=== PATIENT | male | born 1975 | race American Indian/Alaskan Native ===

== ENCOUNTER 2017-03-23 09:35 | Emergency (ER) | payer BC ==
[2017-03-23 10:04] VITALS: RESP 18
--- NOTE | 2017-03-23 10:08 | ED PDOC ---
Arrival/HPI - General Chief Complaint: Lower Extremity Problem/Injury Time Seen by Provider: 03/23/17 10:01 Historian: Patient - History of Present Illness Narrative History of Present Illness (Text): 03/23/17 10:03 41yr old male presents today with 1 week history of left foot and ankle pain. denies trauma or injury. pt states 1 week ago he woke up with pain in the foot. pt states he went to [facility] and had xrays and has been taking motrin and tylenol without improvement. pt describes a burning sensation along the plantar aspect of foot. pt also c/o nasal congestion, sore throat and cough. denies fevers although he states patient he had temperature today when they took his temperature in ER. no medications taken for pain at home. denies calf pain. no other complaints. Time/Duration: 1 week, Other (uri symptoms x 2 days) Past Medical History - Provider Review Nursing Documentation Reviewed: Yes - Travel History Have you recently traveled outside [place] w/in the past 3 mons?: No - Infectious Disease Hx of Infectious Diseases: None - Tetanus Immunization Tetanus Immunization: Unknown - Cardiac Hx Hypertension: Yes - Gastrointestinal Hx Gastrointestinal Disorders: No - Psychiatric Hx Substance Use: No - Anesthesia Hx Anesthesia: No Hx Anesthesia Reactions: No Hx Malignant Hyperthermia: No Family/Social History - Physician Review Nursing Documentation Reviewed: Yes Family/Social History: Unknown Family HX Smoking Status: Never Smoked Hx Alcohol Use: No Hx Substance Use: No Allergies/Home Meds Allergies/Adverse Reactions: Allergies shellfish derived Allergy (Severe, Verified 03/23/17 09:45) SHORTNESS OF BREATH codeine Allergy (Verified 03/23/17 09:44) SHORTNESS OF BREATH Home Medications: Home Meds Medication Instructions Recorded Confirmed Metoprolol Succinate [Toprol XL] 100 mg 03/23/17 hydroCHLOROthiazide [Hydrodiuril] 25 03/23/17 Review of Systems - Review of Systems Constitutional: absent: Fatigue, Fevers ENT: Sinus Congestion Respiratory: Cough. absent: SOB Cardiovascular: absent: Chest Pain, Palpitations Gastrointestinal: absent: Abdominal Pain, Nausea, Vomiting Genitourinary Male: absent: Dysuria Musculoskeletal: Arthralgias (left foot pain) Skin: absent: Rash, Pruritis Neurological: absent: Headache, Dizziness Psychiatric: absent: Anxiety, Depression Physical Exam Vital Signs Reviewed: Yes Vital Signs Temp Pulse Resp BP Pulse Ox 03/23/17 09:39 100.5 F H 88 18 150/109 H 97 Temperature: Febrile Blood Pressure: Hypertensive Pulse: Regular Respiratory Rate: Normal Appearance: Positive for: Well-Appearing, Non-Toxic, Comfortable Pain Distress: None Mental Status: Positive for: Alert and Oriented X 3 - Systems Exam Head: Present: Atraumatic Pupils: Present: PERRL Extroacular Muscles: Present: EOMI Conjunctiva: Present: Normal Ears: Present: Normal, NORMAL TM. No: Erythema Mouth: Present: Moist Mucous Membranes. No: Drooling, Trismus Pharnyx: Present: Normal. No: ERYTHEMA, EXUDATE, TONSILS ENLARGED, Peritonsilar Swelling, Uvular Deviation Nose (External): Present: Atraumatic Nose (Internal): Present: No Active Bleeding, Engorged, Clear Mucous. No: Septal Hematoma Neck: Present: Normal Range of Motion, Trachea Midline. No: Lymphadenopathy Respiratory/Chest: Present: Clear to Auscultation, Good Air Exchange. No: Respiratory Distress, Accessory Muscle Use Cardiovascular: Present: Regular Rate and Rhythm, Normal S1, S2. No: Murmurs Abdomen: No: Tenderness, Distention, Rebound, Guarding Lower Extremity: Present: NORMAL PULSES, Normal ROM, Tenderness, Neurovascularly Intact, Capillary Refill < 2 s. No: CALF TENDERNESS, Swelling, Erythema, Deformity, Temperature Abnormalties Neurological: Present: GCS=15, Speech Normal Skin: Present: Warm, Dry, Normal Color. No: Rashes Psychiatric: Present: Alert, Oriented x 3 Medical Decision Making ED Course and Treatment: 03/23/17 11:48 Patient nontoxic well-appearing in no distress with low grade fever in er; URi symptoms x 2 days + nasal congestion, facial pressure. + sick contacts X-rays of the foot: no fracture xrays of the ankle; no fracture toradol IM Patient placed in short leg posterior splint crutches given for ambulation. will treat patient with augmentin for sinus infection; I discussed all results in depth with the patient advised to followup with the orthopedist/assembler arranger within the next 2 days. advised augmentin twice daily x 10 days. advised rest,ice,elevation. Return if symptoms worsen persist or new symptoms develop Impression:sinusitis, foot pain Motrin every 6 hours as needed for pain/fever reduction Augmentin; 1 tablet twice daily x 10 days Rest, ice, compression, elevation Use crutches for ambulation Followup with the orthopedist/assembler arranger within the next 2 days Followup with primary care physician within the next 2 days Return if symptoms worsen persist or if new symptoms develop - RAD Interpretation Radiology Orders: 03/23/17 10:01 ANKLE LEFT 3 VIEWS ROUTINE [RAD] Stat FOOT LEFT 3 VIEWS ROUTINE [RAD] Stat - Medication Orders Current Medication Orders: Ketorolac Tromethamine (Toradol) 60 mg IM STAT STA Stop: 03/23/17 10:03 Procedures - Splinting Location: left foot Hand-Made Type: fiberglass Splint: short leg posterior splint Pre-Proc Neuro Vasc Exam: normal Post-Proc Neuro Vasc Exam: normal Disposition/Present on Arrival - Present on Arrival Any Indicators Present on Arrival: No History of DVT/PE: No History of Uncontrolled Diabetes: No Urinary Catheter: No History of Decub. Ulcer: No History Surgical Site Infection Following: None - Disposition Have Diagnosis and Disposition been Completed?: Yes Diagnosis: Foot pain, Sinusitis Disposition: HOME/ ROUTINE Disposition Time: 11:51 Patient Plan: Discharge Condition: GOOD Discharge Instructions (ExitCare): Sinusitis (ED), Arthralgia (ED) Additional Instructions: Motrin every 6 hours as needed for pain/fever reduction Augmentin; 1 tablet twice daily x 10 days Rest, ice, compression, elevation Use crutches for ambulation Followup with the orthopedist/assembler arranger within the next 2 days Followup with primary care physician within the next 2 days Return if symptoms worsen persist or if new symptoms develop Prescriptions: Amoxicillin/Clavulanate [Augmentin 875 MG-125 MG] 1 tab PO BID #20 tab Ibuprofen [Motrin] 600 mg PO Q6H PRN #20 tab PRN Reason: pain/fever reduction Referrals: Doug Ring DPM [Staff Provider] - Follow up with primary Kenton Connor MD [Staff Provider] - Follow up with primary Ashlee Pina DPM [Staff Provider] - Follow up with primary Forms: [employer] ([place]yan), WORK NOTE
--- NOTE | 2017-03-23 10:56 | RAD ---
PROCEDURE: Left Ankle Radiographs. HISTORY: left foot/ankle pain COMPARISON: None FINDINGS: BONES: No acute fracture or destructive bony lesion identified. A small accessory ossicle seen inferior to the lateral malleolus. JOINTS: Normal. No osteoarthritis. Ankle mortise maintained. Talar dome intact SOFT TISSUES: Normal. OTHER FINDINGS: None. IMPRESSION: Normal left ankle radiographs.
--- NOTE | 2017-03-23 10:58 | RAD ---
PROCEDURE: Left Foot Radiographs. HISTORY: left foot/ankle pain COMPARISON: None. FINDINGS: BONES: No acute fracture or destructive bony lesion identified. Accessory ossicle seen related to the navicular bone. JOINTS: Normal. SOFT TISSUES: Normal. OTHER FINDINGS: None. IMPRESSION: Normal left foot radiographs.
--- NOTE | 2017-03-23 11:02 | RAD ---
HISTORY: cough/fever COMPARISON: No prior. TECHNIQUE: Chest PA and lateral FINDINGS: LUNGS: No active pulmonary disease. PLEURA: No significant pleural effusion identified. No pneumothorax apparent. CARDIOVASCULAR: Normal. OSSEOUS STRUCTURES: No significant abnormalities. VISUALIZED UPPER ABDOMEN: Normal. OTHER FINDINGS: None. IMPRESSION: No acute cardiopulmonary disease appreciated.
[2017-03-23 11:39] VITALS: BP 145/91; PULSE 75; TEMP 99.2; O2SAT 99
[2017-03-23] MEDS ORDERED: Amoxicillin-Clav 875-125 mg Tab PO STA (11:47)
== END 2017-03-23 11:50 | disposition home or self-care (01) ==
LOC: ED 09:35
DX: M79.672 Pain in left foot (principal); J32.9 Chronic sinusitis, unspecified
CPT/HCPCS: 29515; 71020; 73610; 73630; 96372; 99285; J1885